=== PATIENT | male | born 1970 | race African-American/Black ===

== ENCOUNTER 2021-03-15 13:59 | Emergency (ER) | payer OTHER ==
[~2021-03-15] VITALS: Ht 170.2 cm; Wt 78.6 kg
[2021-03-15] MEDS ORDERED: HYDRALAZINE HCL 20 MG/ML VIAL IV ONE (14:19)
[2021-03-15 14:45] LABS: BASOPHILS % 0.8 % (0.0-1.0); EOSINOPHILS # (AUTO) 0.5 (0.0-0.4); EOSINOPHILS % 9.5 % (0.0-6.0); HEMATOCRIT 47.9 % (38.2-49.6); HEMOGLOBIN 15.3 g/dL (14.0-18.0); LYMPHOCYTES % 40.3 % (18.0-39.1); MEAN CORPUSCULAR HEMOGLOBIN 27.1 pg (28-32); MEAN CORPUSCULAR HGB CONC 31.9 g/dL (31-35); MEAN CORPUSCULAR VOLUME 84.8 fL (81-99); MONOCYTES # (AUTO) 0.4 (0.2-0.8); MONOCYTES % 7.8 % (4.4-11.3); NEUTROPHILS % 41.4 % (38.7-80.0); PLATELET COUNT 231 x10e3/uL (140-360); RED BLOOD COUNT 5.65 x10e6/uL (4.3-5.7); RED CELL DISTRIBUTION WIDTH 12.5 % (11.7-14.4)
[2021-03-15 14:54] LABS: INR 0.89; PROTHROMBIN TIME 12.8 seconds (11.9-14.5)
[2021-03-15 15:01] LABS: ALBUMIN 4.4 g/dL (3.5-5.0); ALBUMIN/GLOBULIN RATIO 1.2 (0.8-2.0); ANION GAP 11.9 mmol/L (8-16); CALCIUM 9.7 mg/dL (8.4-10.2); CREATININE, SERUM 1.09 mg/dL (0.72-1.25); POTASSIUM 3.9 mmol/L (3.5-5.1)
[2021-03-15] MEDS ORDERED: NORVASC5 MG PO (15:14)
[2021-03-15 15:21] VITALS: BP 176/82
== END 2021-03-15 16:09 | disposition home or self-care (01) ==
LOC: ER 15:00
DX: I10 Essential (primary) hypertension (principal)
CPT/HCPCS: 36415; 71045; 80053; 84484; 85025; 85610; 93005; 99284; J0360

== ENCOUNTER 2021-03-18 09:41 | Emergency (ER) | payer OTHER ==
[~2021-03-18] VITALS: Ht 167.6 cm; Wt 78.5 kg
[~2021-03-18 09:41] MED LIST: NORVASC5 MG PO
[2021-03-18] MEDS ORDERED: CLONIDINE HCL 0.1 MG TAB PO ONE (10:15)
== END 2021-03-18 10:53 | disposition home or self-care (01) ==
LOC: ER 10:01
DX: I10 Essential (primary) hypertension (principal)
CPT/HCPCS: 99282